=== PATIENT | female | born 1955 | race Caucasian/White ===

== ENCOUNTER 2021-08-04 18:04 | Outpatient (CLI) | payer BC, MEDICARE, SELFPAY ==
[2021-08-04 18:11] VITALS: BP 137/88; PULSE 78; RESP 16; TEMP 36.8; O2SAT 98; BMI 35.2
[2021-08-04] MEDS: 0.9% Saline Lock 10 ML Syringe IV (18:28)
[2021-08-04 19:13] VITALS: BP 130/78; PULSE 57; RESP 18; TEMP 36.6; O2SAT 99
[2021-08-04 20:08] VITALS: BP 138/80; PULSE 67; RESP 16; TEMP 36.6; O2SAT 98
== END 2021-08-04 20:13 | disposition home or self-care (01) ==
LOC: MS3OUT 18:05 → MS3 18:06
PROVIDERS: Referring Provider Nurse Practitioner Acute Care; Visit Provider Nurse Practitioner Acute Care
DX: Z23 Encounter for immunization (principal); U07.1 COVID-19; L40.50 Arthropathic psoriasis, unspecified
CPT/HCPCS: J7050; M0245; Q0245; A4216

== ENCOUNTER → 2022-06-28 | Outpatient (CLI) | payer BC, MEDICARE, SELFPAY ==
--- NOTE | 2022-06-28 11:10 | LES_PTH ---
PATIENT: ANNA PERLA LOC: [facility] U#:[id number] AGE/SX: 67/F ROOM: RE06/28/[address]: Dr. Jcarlos Gutierrez MD : [id number] BED: DIS: 06/28/2022 SPEC #: [id number] RECD: 06/28/22 17:43 STATUS: PAT JUDAH #: [id number] RENEE: 06/28/22 11:[address]: Jcarlos Gutierrez DEPT: SURGICAL PATHOLOGY RECD BY: Melissa Vital Tissues: Skin of eyelid, NOS Procedures: Surgery Specimen Level IV HEADER OPERATION: Lesion removal, right upper lid PRE-OP DIAGNOSIS: Possible nevus TISSUE SUBMITTED: Right upper eyelid lesion MICROSCOPIC DIAGNOSIS Right upper eyelid lesion: Seborrheic keratosis. /SJ 06/30/22 MICROSCOPIC DESCRIPTION Slides are reviewed. GROSS DESCRIPTION Received is one container labeled with the patient name and designated Right upper eyelid lesion. The specimen consists of one irregular fragment of haas brown skin that measures 0.5 x 0.3 x 0.2 cm. The specimen is totally submitted in one cassette. /SJ:cc 06/29/2022 TC:1 CPT: 56084
== END | disposition home or self-care (01) ==
PROVIDERS: Visit Provider Ophthalmology
DX: L82.1 Other seborrheic keratosis (principal)
CPT/HCPCS: 88305